=== PATIENT | female | born 1960 | race Caucasian/White ===

== ENCOUNTER 2021-06-13 12:00 | Emergency (ER) | payer OTHER ==
[~2021-06-13] VITALS: Ht 162.6 cm; Wt 68.3 kg
[~2021-06-13 12:00] MED LIST: THYR90TA PO
[2021-06-13 12:03] VITALS: BP 120/75
--- NOTE | 2021-06-13 15:20 | NUR ---
MD EXAMINED PATIENT IN TRIAGE AND THEN VERBALLY DISCHARGED PATIENT. THEN MADE LEGISLATIVE CORRESPONDENT AWARE- LEGISLATIVE CORRESPONDENT REMOVED FROM SYSTEM
== END 2021-06-13 15:22 ==
LOC: ED 12:10
DX: S20.02XA Contusion of left breast, initial encounter (principal); I10 Essential (primary) hypertension; Z86.39 Personal history of other endocrine, nutritional and metabolic disease; W22.8XXA Striking against or struck by other objects, initial encounter; Y93.89 Activity, other specified; Y92.410 Unspecified street and highway as the place of occurrence of the external cause; Y99.8 Other external cause status
CPT/HCPCS: 71120; 99284